=== PATIENT | female | born 1965 | race African-American/Black ===

== ENCOUNTER 2019-08-23 09:34 | Day surgery (SDC) | payer OTHER ==
[~2019-08-23] VITALS: Ht 170.2 cm; Wt 133.4 kg
[~2019-08-23 09:34] MED LIST: LISI30TA6 PO
[2019-08-23] MEDS ORDERED: fentaNYL 0.05 MG/ML VIAL ONE (12:22)
[2019-08-23] MEDS ORDERED: LIDOCAINE 2% 100 MG/5 ML UJET TP ONE (12:23)
[2019-08-23] MEDS ORDERED: MIDAZOLAM 2 MG/2 ML VIAL ONE (12:23)
[2019-08-23] MEDS ORDERED: fentaNYL 0.05 MG/ML VIAL IVP ONE (12:30)
== END 2019-08-23 13:22 | disposition home or self-care (01) ==
LOC: MDS 09:34 → MMU 10:46 → MDS 13:22
PROVIDERS: ATTEND Internal Medicine Gastroenterology
DX: K59.00 Constipation, unspecified (principal); D12.3 Benign neoplasm of transverse colon; K64.8 Other hemorrhoids; K57.30 Diverticulosis of large intestine without perforation or abscess without bleeding; E66.01 Morbid (severe) obesity due to excess calories; I10 Essential (primary) hypertension; Z88.0 Allergy status to penicillin; Z88.8 Allergy status to other drugs, medicaments and biological substances; Z79.899 Other long term (current) drug therapy; Z98.890 Other specified postprocedural states; Z68.42 Body mass index [BMI] 45.0-49.9, adult
CPT/HCPCS: 45385; 81025; J3010; J2250